=== PATIENT | female | born 1960 | race African-American/Black ===

== ENCOUNTER 2017-01-12 02:31 | Emergency (ER) | payer OTHER, BC ==
[2017-01-12 02:48] VITALS: BP 138/88; BMI 4100.8
[2017-01-12] MEDS ORDERED: ATIVAN INJ 2 MG VIAL IM STA (02:55)
[2017-01-12] MEDS ORDERED: ADACEL TDaP IM ONE ×2 (02:56→03:04)
[2017-01-12] MEDS ORDERED: SODIUM BICARBONATE 4.2% ONE (02:56)
--- NOTE | 2017-01-12 03:01 | DR.GENAD ---
HPI - PCP Primary Care Physician: MARCO - Complaint/Symptoms Chief Complaint Doctors Comments: Patient states she cut her left foot while running from a cat about 3pm today about eleven hours ago. She called EMS and they stopped the bleeding and dressed the wound for her but the pain got so bad tonight that she had to come to the emergency room. She has been hopping today since the accident happened. States she is unsure of the last time she had a tetanus shot. She denies head trauma or LOC. States she had to pull the skin back over her heel and she think she may need some stitches. States she is a patient of Dr. Hermosillo. Chief Complaint:: LACERATION TO LEFT FOOT Self Treatment fo Chief Complaint: PATIENT CALLED EMS WHO CLEANED AND DRESSED THE WOUND. PATIENT CLEANED FOOT WITH PEROXIDE AND PUT VASELINE OVER GAUZE WHEN REDRESSING. - Nurses notes reviewed Nurses Notes Review: Yes - Source History Provided: Patient - Mode of Arrival Mode of Arrival: Ambulatory - Timing Onset of Chief Complaint: 01/12/17 Came on: Suddenly - Duration Duration: Constant How lon Duration: Hours - Location Location: left heel laceration - Severity Severity: Moderate - Modifying Factors Worsens:: walking and movement Improves:: rest, elevation PMH - PMH Past Medical History: Yes Past Medical History: GERD, Hypertension Past Surgical History: Yes Surgical History: Hysterectomy, Ortho Surgery Past Surgical History Comment: BOTH SHOULDERS REPAIRED 2 D&C, BONE SPUR REMOVAL - Family History History of Family Medical Conditions: Yes Family Medical History: Diabetes Mellitus, Cancer, [place], Coronary Artery Disease, Hypertension - Social History Does patient currently use any type of tobacco product: No Have you used tobacco products in the last 12 months: No Type of Tobacco Use: Cigarettes Does any household member use tobacco: No Alcohol Use: None Do you use any recreational Drugs:: No Lives With: Family Lives Where: Home - infectious screening In the last 2 months have you had wt loss of >10#?: NO Have you had fever, night sweats or hemotysis?: No Have you traveled outside the country in the last 6 months?: No Isolation: Standard ROS - Review of Systems Constitutional: No Symptoms Reported. negative: See HPI, Chills, Diaphoresis, Fever, Malaise, Weakness, Irritable, Fatigue, Loss of Appetite, Other Eyes: No Symptoms Reported ENTM: No Symptoms Reported. negative: See HPI, Ear Pain, Ear Discharge, Pulling on Ears, Hearing Loss, Nose Pain, Nose Discharge, Epistaxis, Nose Congestion, Mouth Pain, Mouth Swelling, Loose Teeth, Drooling, Throat Pain, Throat Swelling, Ear Foreign Body Respiratoy: No Symptoms Reported Cardiovascular: No Symptoms Reported. negative: See HPI, Chest Pain, Edema, Palpitations, Syncope, Cyanosis, Skin Mottling, Other Gastrointestinal/Abdominal: No Symptoms Reported Genitourinary: No Symptoms Reported Neurological: No Symptoms Reported, Problems Walking (lelft foot pain when she tries to walk) Musculoskeletal: Left, Ankle, Foot Integumentary: No Symptoms Reported, Wound (laceration left heel). negative: See HPI, Change in Color, Change in Hair/Nails, Dryness, Lesions, Lumps, Rash, Itching, Bruises, Juandice, Other Hematologic/Lymphatic: negative: No Symptoms Reported, See HPI, Anemia, Blood Clots, Easy Bleeding, Easy Bruising, Swollen Glands, Lymphadenopathy, Other Endocrine: negative: No Symptoms Reported, See HPI, Excessive Sweating, Flushing , Intolerance to Cold, Intolerance to Heat, Increased Hunger, Increased Thirst, Increased Urine, Unexplained Weight Gain, Unexplained Weight Loss, Failure to Thrive, Decreased Appetite, Other Psychiatric: negative: No Symptoms Reported, See HPI, Anxiety, Depression, Hallucinations, Excessive crying, Suicidal, Other PE - Vital Signs Vitals: Temperature 98.1 F Pulse Rate 74 Respiratory Rate 16 Blood Pressure 138/88 O2 Sat by Pulse Oximetry 99 - General Limitations: No Limitations General Appearance: Alert, In Distress (moderate) - Head Head Exam: Normal Inspection, Atraumatic, Normocephalic - Eyes Eye exam: Normal Appearance, PERRL, EOMI. negative: Scleral Icterus, Conjunctival Injection, Nystagmus, Miosis, Mydrasis, Periorbital Swelling, Periorbital Tenderness, Other - ENT ENT Exam: Normal Exam, Normal Oropharynx, Normal External Ear Exam, Mucous Membranes Moist, TM's Normal Bilaterally External Ear Exam: Normal External Inspection TM/Canal Exam: Bilateral Normal Nose Exam: Normal Nose Exam Mouth Exam: Normal Inspection Throat Exam: Normal Inspection. negative: Tonsillar Erythema, Tonsillomegaly, Tonsillar Exudate, R Peritonsillar Mass, L Peritonsillar Mass, Muffled Voice, Other - Neck Neck Exam: Normal Inspection, Full ROM, Trachea Midline - Chest Chest Inspection: Normal Inspection, Symmetric Chest Wall Rise. negative: Tenderness, Rash, Abscess, Other - Respiratory Respiratory Exam: Normal Lung Sounds Bilat Respiratory Exam: Bilateral Clear to Auscultation - Cardiovascular Cardiovascular Exam: Regular Rate, Normal Rhythm, Normal Heart Sounds - Abdominal Exam Abdominal Exam: Normal Inspection, Normal Bowel Sounds, Soft Abdominal Tenderness: negative: RUQ, RLQ, LUQ, LLQ, Epigastrium, Suprapubic, Diffuse, Mild, Moderate, Severe, Other - Extremities Extremities Exam: Normal Inspection, Full ROM, Tenderness (left ankle tender with 4 cm laceration), Normal Capillary Refill. negative: Edema, Joint Swelling , Calf Tenderness, Other - Back Back Exam: Normal Inspection, Full ROM. negative: Tenderness, (R) CVA Tenderness, (L) CVA Tenderness, Muscle Spasm, Paraspinal Tenderness, Vertebral Tenderness, Rashes, (R) Sciatic Notch Tenderness, (L) Sciatic Notch Tendern, (R ) Straight Leg Raise, (L) Straight Leg Raise, Other - Neurologic Neurological Exam: Alert, Oriented X3, CN II-XII Intact, Reflexes Normal. negative: Normal Gait - Psychiatric Psychiatric Exam: Normal Affect, Normal Mood - Skin Skin Exam: Warm, Dry, Intact, Normal Color. negative: Rash, Cyanosis, Diaphoresis, Erythema, Pallor, Mottled, Other Procedures - Laceration/Wound Repair Left Ankle Wound Length (cm): 6 Wound's Depth, Shape: Superficial, Irregular, Flap, Contused Tissue Wound Explored: no foreign body removed Betadine Prep?: Yes Anesthesia: 1% Lidocaine, Other (Bicarbonate) Volume Anesthetic (ccs): 10 Wound Debrided: minimal Wound Repaired With: sutures Suture Size/Type: 3:0, Nylon Number of Sutures: 10 Layer Closure?: No Sterile Dressing Applied?: Yes Splint Applied?: No Sling Applied?: No - Diagnosis Discharge Problem: Laceration of left heel Qualifiers: Encounter type: initial encounter Qualified Code(s): S91.312A - Laceration without foreign body, left foot, initial encounter Contusion of left heel Qualifiers: Encounter type: initial encounter Qualified Code(s): S90.32XA - Contusion of left foot, initial encounter - Discharge Plan Disposition: 01 HOME, SELF-CARE Condition: Stable Prescriptions: Acetaminophen/Codeine Tab [TYLENOL w/CODEINE #3 (300 MG/30 MG) *] 1 tab PO Q4- 6H PRN #45 tab PRN Reason: Pain Cephalexin [KEFLEX CAP 500 MG *] 500 mg PO TID #30 cap - Follow ups/Referrals Follow ups/Referrals: KARLA LARA [Primary Care Provider] - 3 days - Instructions Instructions: Laceration Care, Adult, [id number], Sutured Wound Care, Contusion
[2017-01-12] MEDS ORDERED: ATIVAN INJ 2 MG VIAL ONE (03:03)
[2017-01-12] MEDS ORDERED: ROCEPHIN VIAL 1 GM IM ONE ×2 (03:59→04:00)
[2017-01-12] MEDS ORDERED: NEOSPORIN OINT TOP ONE (03:59)
[2017-01-12] MEDS ORDERED: ROCEPHIN VIAL 1 GM ONE (04:03)
[2017-01-12] MEDS ORDERED: NEOSPORIN OINT ONE (04:05)
== END 2017-01-12 04:25 | disposition home or self-care (01) ==
LOC: ER 02:31
PROC: 0YQL0ZZ Repair Left Ankle Region, Open Approach (ICD-10-PCS; principal; 2017-01-12)
DX: S91.312A Laceration without foreign body, left foot, initial encounter (principal); S90.32XA Contusion of left foot, initial encounter; W45.8XXA Other foreign body or object entering through skin, initial encounter; Y92.9 Unspecified place or not applicable
CPT/HCPCS: 12002; 90471; 96372; 99283; J0696; J2060

== ENCOUNTER 2017-08-04 18:56 | Emergency (ER) | payer OTHER, BC ==
[2017-08-04 19:04] VITALS: BMI 36.1
[2017-08-04] MEDS ORDERED: PHENERGAN INJ 25 MG IM ONE (19:41)
[2017-08-04] MEDS ORDERED: TORADOL 60 MG VIAL IM ONE (19:41)
--- NOTE | 2017-08-04 19:44 | DR.GENAD ---
HPI - PCP Primary Care Physician: MARCO - Complaint/Symptoms Chief Complaint:: HEADACHE, PAIN IN LOWER BACK, BLOOD PRESSURE ELEVATED, THROWING UP Self Treatment fo Chief Complaint: LEBATOLOL (PRESCIPTION); LISINOPRIL; ASA - Nurses notes reviewed Nurses Notes Review: Yes - Source History Provided: Patient - Mode of Arrival Mode of Arrival: Ambulatory - Timing Onset of Chief Complaint: 08/04/17 Came on: Suddenly - Duration Duration: Constant Duration: Hours - Severity Severity: Moderate PMH - PMH Past Medical History: Yes Past Medical History: Coronary Artery Disease, Migraines, Headaches, Hypertension Past Medical History Comment: 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;ULCERS Past Surgical History: Yes Surgical History: Hysterectomy Past Surgical History Comment: ROTATOR CUFF BILATERAL; CARPAL TUNNEL - Family History History of Family Medical Conditions: No Family Medical History: Diabetes Mellitus, Cancer, [place], Coronary Artery Disease, Hypertension - Social History Alcohol Use: None Do you use any recreational Drugs:: No Lives With: Alone Lives Where: Home - infectious screening In the last 2 months have you had wt loss of >10#?: NO Have you had fever, night sweats or hemotysis?: No Have you traveled outside the country in the last 6 months?: No Isolation: Standard PE - Vital Signs Vitals: Temperature 98.5 F Pulse Rate 82 Respiratory Rate 22 Blood Pressure 148/78 O2 Sat by Pulse Oximetry 99 - Discharge Plan Condition: Stable Prescriptions: [id number] [Fioricet Tab] 1 tab PO Q8H PRN #30 tab PRN Reason: Migraine Headache Ondansetron [Zofran ODT 8 mg] 8 mg PO Q8H PRN #12 tab PRN Reason: Nausea/Vomiting - Follow ups/Referrals Follow ups/Referrals: KARLA LARA [Primary Care Provider] - 08/06/17 - Instructions Instructions: Headache and Arthritis Additional Instructions: RETURN TO ED IF WORSE.
[2017-08-04] MEDS ORDERED: TORADOL 60 MG VIAL ONE (19:55)
[2017-08-04] MEDS ORDERED: PHENERGAN INJ 25 MG ONE (19:55)
--- NOTE | 2017-08-04 20:30 | CT ---
HISTORY: Headache. Study: CT brain without contrast Comparison: None. Technique: Multiple axial images of the brain were obtained from the skull base to the vertex without administra tion of IV contrast. Dose reduction techniques including Automated Exposure Control (AEC) and adjust ment of mA and kV were utilized. Findings: No acute intraparenchymal hemorrhage or mass can be identified. No extra-axial fluid collections are seen. No alteration in the attenuation of the brain parenchyma can be identified to suggest acute o r subacute ischemic change. The ventricular system is symmetric and nondilated. The extracranial st ructures are grossly unremarkable. IMPRESSION: No acute intracranial pathology. Reported By:
[2017-08-04 21:27] VITALS: BP 120/81
== END 2017-08-04 21:31 | disposition home or self-care (01) ==
LOC: ER 19:09
DX: R51 Headache (principal); M19.90 Unspecified osteoarthritis, unspecified site; M54.5 Low back pain; R03.0 Elevated blood-pressure reading, without diagnosis of hypertension; R11.10 Vomiting, unspecified
CPT/HCPCS: 70450; 96372; 99282; 99283; J1885; J2550

== ENCOUNTER → 2017-09-24 | Outpatient (CLI) | payer OTHER, BC ==
--- NOTE | 2017-09-25 06:16 | RAD ---
Examination: Lumbar spine, five views History: Back pain Findings: There is moderate disc narrowing at L3-4 interspace. Small osteophytes are present. Less se suzanne degenerative change involves the L5-S1 disc. Alignment is normal. No pedicle erosion or sacroili ac abnormality. Impression: No acute process. Degenerative disc disease, especially L3-4. Reported By:
--- NOTE | 2017-09-25 06:17 | RAD ---
Examination: Right knee, four views History: Pain no injury Findings: No evidence for fracture, dislocation or significant arthropathy. The patella is in normal position. No synovial effusion is demonstrated. Impression: No acute or significant findings right knee. Reported By:
== END ==
LOC: RAD 16:20
PROVIDERS: ATTEND Specialist
DX: M54.5 Low back pain (principal); M51.36 Other intervertebral disc degeneration, lumbar region
CPT/HCPCS: 72110; 73564

== ENCOUNTER → 2017-10-01 | Outpatient (CLI) | payer OTHER, BC ==
--- NOTE | 2017-10-01 14:40 | MRI ---
MR lumbar spine without contrast Indication: Chronic lower back pain. No history of trauma given. Comparison: 09/24/2017 radiographs. Technique: Multiplanar multi sequence imaging through the lumbar spine without contrast. Findings: Bone marrow signal is normal. There is multilevel lower lumbar spine disc degenerative thompson ge and facet arthropathy with disc bulges worse at L3 through S1. No STIR signal abnormality seen. Th e conus terminates normally at the L2 pedicle level. Visualized abdominopelvic soft tissue shows no u nexpected abnormality. T11-T12: No significant abnormality. T12-L1: No significant abnormality L1-L2: No significant abnormality other than mild facet arthropathy. L2-L3: Mild facet arthropathy without significant stenosis. L3-L4: Circumferential disc bulge, slightly asymmetric right lateral component noted. Moderate facet arthropathy seen. There is mild to moderate spinal canal narrowing as result. No high-grade neural fo ramen narrowing seen. L4-L5: Circumferential disc bulge and moderate facet arthropathy with ligamentum flavum thickening ca use no high-grade stenosis. Mild bilateral neural foramen narrowing noted. L5-S1: Moderate facet arthropathy with ligamentum flavum thickening and circumferential disc bulge ca uses [id number] bilateral neural foramen narrowing. T1 weighted imaging shows fat along the filum terminale without evidence of tethered cord. Impression: 1. Lower lumbar spine disc degenerative change and facet arthropathy with mild bilateral neural hawk inal narrowing at L4-L5 and [id number] bilateral neural foraminal narrowing at L5-S1. 2. Disc bulge and facet arthropathy results in mild to moderate spinal canal narrowing at L3-L4. Reported By:
== END | disposition home or self-care (01) | DRG 552 ==
LOC: RAD 11:54
PROVIDERS: ATTEND Orthopaedic Surgery
DX: M47.27 Other spondylosis with radiculopathy, lumbosacral region (principal); M51.26 Other intervertebral disc displacement, lumbar region
CPT/HCPCS: 72148